=== PATIENT | female | born 1955 | race Caucasian/White ===

== ENCOUNTER 2016-10-19 09:35 | Observation (INO) | payer BC ==
[~2016-10-19] VITALS: Ht 162.6 cm; Wt 97.7 kg
[~2016-10-19 09:35] MED LIST: ACIPHEX20 MG PO; ACTOS15 MG PO; BAYER PLUS 500500 MG PO; CITRACAL SOFT1 EACH PO; CITRACAL-VIT D1 EACH PO; COUMADIN1 MG; DEXILANT60 MG PO; DONNATAL1 TABLET PO; IMODIUM A-D2 MG PO; LEVEMIR FL100 UNIT/1 SC; LOVENOX100 MG/1 M SC; MAXAIR IH; MOBIC7.5 MG PO; MUCINEX1200 MG PO; NAPROXEN500 MG PO; PERCOCET 5/31 TABLET PO; PRADAXA150 MG PO; ROBAXIN500 MG PO; SINGULAIR10 MG PO; SYMBICORT60 INHALA1 IH; SYMBICORT60 INHALAT IH; TRAMADOL HCL50 MG PO; ULTRAM50 MG PO; VOLTAREN 1% GE100 GM TP; XARELTO20 MG PO; ZANTAC150 MG PO; ZITHROMAX Z-PA250 MG PO; ZOFRAN4 MG PO
[2016-10-19 10:23] LABS: EOSINOPHIL (%) 3.8 % (0-5); EOSINOPHIL COUNT 0.2 K/uL (0-0.3); HEMATOCRIT 37.6 % (36.0-46.0); IMMATURE GRANULOCYTE (%) 0.2 % (0.0-0.7); INSTRUMENT ABS NEUTROPHIL CT 3.1 K/uL; LYMPHOCYTE COUNT 1.2 K/uL (1.0-2.8); MCH 24.2 PG (29.0-34.0); MCHC 30.6 G/DL (30.0-36.0); MEAN PLAT.VOLUME 9.3 uM^3 (9.5-12.4); MONOCYTE (%) 10.1 % (3-12); MONOCYTE COUNT 0.5 K/uL (0-0.8); NEUTROPHIL (%) 62.4 % (45-76); NEUTROPHIL COUNT 3.1 K/uL (1.8-6.4); PLATELET COUNT 272 K/uL (156-360); RBC DIS.WIDTH-CV 13.9 % (11.8-14.6); RBC DIS.WIDTH-SD 39.8 % (39-53); RED BLOOD COUNT 4.76 M/uL (3.80-5.20)
[2016-10-19 10:32] LABS: INTER. NORMALIZED RATIO 1.1; PROTHROMBIN TIME 11.1 (9.2-11.2); PTT 31.4 (25-32)
[2016-10-19 10:39] LABS: CHLORIDE 110 mEq/L (99-109); POTASSIUM 4.2 mEq/L (3.7-5.4); SODIUM 141 mEq/L (136-147)
[2016-10-19 10:40] LABS: GLUCOSE 155 mg/dL (70-99)
[2016-10-19 10:42] LABS: ANION GAP 13 MEQ/L (2-14)
[2016-10-19 10:44] LABS: GFR ESTIMATE (CALCULATED) > 59 mL/min/
[2016-10-19 10:45] LABS: UREA NITROGEN (BUN) 13 mg/dL (9-23)
[2016-10-19 10:50] LABS: TROP-I INTERPRETATION NEGATIVE; TROPONIN-I < 0.01 ng/mL (0.0-0.30)
[2016-10-19] MEDS ORDERED: JARDIANCE10 MG PO (12:55)
[2016-10-19] MEDS ORDERED: FLUCONAZOLE150 MG PO (12:55)
[2016-10-19] MEDS ORDERED: LEVEMIR FL100 UNIT/1 SC (13:36)
[2016-10-19] MEDS ORDERED: ROBAXIN500 MG PO (13:41)
[2016-10-19] MEDS ORDERED: NASONEX17 GM BOTH NARES (13:41)
[2016-10-19] MEDS ORDERED: PROVENTIL,2.5 MG/3 M IH (13:42)
[2016-10-19] MEDS ORDERED: PROAIR HFA8.5 GM IH (13:42)
[2016-10-19] MEDS ORDERED: VOLTAREN 1% GE100 GM TP (13:43)
[2016-10-19] MEDS ORDERED: DONNATAL1 TABLET PO ×2 (13:45→13:47)
[2016-10-19 14:09] LABS: HDL CHOLESTEROL 50 MG/DL (Desirable>=50); LDL CHOLESTEROL 85 mg/dL (Desirable<100); NON-HDL CHOLESTEROL 121 mg/dL (Desirable<160); TOTAL CHOLESTEROL 171 mg/dL (Desirable<200); TRIGLYCERIDES 178 MG/DL (Normal: <150)
[2016-10-19 14:35] VITALS: BP 122/69
[2016-10-19 17:05] LABS: TROP-I INTERPRETATION NEGATIVE; TROPONIN-I < 0.01 ng/mL (0.0-0.30)
[2016-10-19 20:00] VITALS: BP 133/76
[2016-10-19 20:38] LABS: POINT-OF-CARE METER ID UU14162513
[2016-10-19 23:03] LABS: TROP-I INTERPRETATION NEGATIVE; TROPONIN-I < 0.01 ng/mL (0.0-0.30)
[2016-10-19 23:39] VITALS: BP 131/60
[2016-10-20 04:05] VITALS: BP 119/63
[2016-10-20 07:00] VITALS: BP 122/55
[2016-10-20 07:36] LABS: POINT-OF-CARE METER ID UU13113831
[2016-10-20] MEDS ORDERED: LIDOCAINE700 MG TD (09:31)
[2016-10-20 10:32] LABS: ANION GAP 9 MEQ/L (2-14); CHLORIDE 107 MEQ/L (99-109); GFR ESTIMATE (CALCULATED) > 59 mL/min/; GLUCOSE 169 mg/dL (70-99); POTASSIUM 3.8 MEQ/L (3.7-5.4); SAMPLE HEMOLYSIS CHECK 0; SAMPLE ICTERIC CHECK 0; SAMPLE LIPEMIA CHECK 0; SODIUM 140 MEQ/L (136-147); UREA NITROGEN (BUN) 9 mg/dL (9-23)
[2016-10-20 11:43] VITALS: BP 128/69
[2016-10-20 12:14] LABS: POINT-OF-CARE METER ID UU13113831
[2016-10-20 13:09] LABS: ADD MIUA? YES; BILIRUBIN NEGATIVE; BLOOD SMALL; COLOR STRAW ((YELLOW)); GLUCOSE (STRIP) >=500; KETONES NEGATIVE; LEUKOCYTES NEGATIVE; NITRITE NEGATIVE; PROTEIN (STRIP) NEGATIVE; SPECIFIC GRAVITY 1.011 (1.000-1.030); UROBILINOGEN 0.2 MG/DL (0.2-1.0)
[2016-10-20 13:22] LABS: BACTERIA RARE /HPF; EPITHELIAL CELLS RARE /HPF; MUCUS TRACE /LPF; RED BLOOD CELLS 0-5 /HPF (0-5); WHITE BLOOD CELLS 0-5 /HPF (0-5)
[2016-10-20] MEDS ORDERED: TRAMADOL HCL50 MG PO (13:39)
== END 2016-10-20 13:46 | disposition home or self-care (01) ==
LOC: EME 09:35 → 5WEST 12:34 → EDOF 12:34 → 5WEST 14:21
PROVIDERS: Emergency Medicine; Internal Medicine
DX: R07.89 Other chest pain (principal); M25.512 Pain in left shoulder; D64.9 Anemia, unspecified; E11.9 Type 2 diabetes mellitus without complications; Z79.4 Long term (current) use of insulin; K21.9 Gastro-esophageal reflux disease without esophagitis; K58.9 Irritable bowel syndrome, unspecified; Z86.711 Personal history of pulmonary embolism; Z86.718 Personal history of other venous thrombosis and embolism
CPT/HCPCS: 71010; 71275; 80048; 80061; 81003; 82948; 84484; 85025; 85610; 85730; 93005; 94640; 94640 76; 99281; 99285; G0378; J1815; J3010; J7030

== ENCOUNTER 2017-03-24 14:58 | Emergency (ER) | payer BC ==
[~2017-03-24] VITALS: Ht 162.6 cm; Wt 93.7 kg
[~2017-03-24 14:58] MED LIST changes: +FLUCONAZOLE150 MG PO; +JARDIANCE10 MG PO; +LIDOCAINE700 MG TD; +NASONEX17 GM BOTH NARES; +PROAIR HFA8.5 GM IH; +PROVENTIL,2.5 MG/3 M IH
[2017-03-24 15:49] LABS: ADD MIUA? YES; BILIRUBIN NEGATIVE; BLOOD SMALL; COLOR STRAW ((YELLOW)); GLUCOSE (STRIP) NEGATIVE; KETONES NEGATIVE; LEUKOCYTES NEGATIVE; NITRITE NEGATIVE; PROTEIN (STRIP) NEGATIVE; SPECIFIC GRAVITY 1.009 (1.000-1.030); UROBILINOGEN 0.2 MG/DL (0.2-1.0)
[2017-03-24 15:52] LABS: BACTERIA NONE SEEN /HPF; EPITHELIAL CELLS RARE /HPF; MUCUS TRACE /LPF; RED BLOOD CELLS 0-5 /HPF (0-5); UCUL ADDED? NO; WHITE BLOOD CELLS 0-5 /HPF (0-5)
[2017-03-24 16:00] LABS: EOSINOPHIL (%) 2.4 % (0-5); EOSINOPHIL COUNT 0.1 K/uL (0-0.3); HEMATOCRIT 36.6 % (36.0-46.0); IMMATURE GRANULOCYTE (%) 0.2 % (0.0-0.7); INSTRUMENT ABS NEUTROPHIL CT 3.8 K/uL; LYMPHOCYTE COUNT 1.2 K/uL (1.0-2.8); MCH 23.7 PG (29.0-34.0); MCHC 31.4 G/DL (30.0-36.0); MCV 75.3 FL (83-99); MEAN PLAT.VOLUME 9.5 uM^3 (9.5-12.4); MONOCYTE (%) 10.7 % (3-12); MONOCYTE COUNT 0.6 K/uL (0-0.8); NEUTROPHIL (%) 66.2 % (45-76); NEUTROPHIL COUNT 3.8 K/uL (1.8-6.4); PLATELET COUNT 265 K/uL (156-360); RBC DIS.WIDTH-CV 17.2 % (11.8-14.6); RBC DIS.WIDTH-SD 45.9 % (39-53); RED BLOOD COUNT 4.86 M/uL (3.80-5.20); WHITE BLOOD COUNT 5.8 K/uL (4.1-10.2)
[2017-03-24 16:10] LABS: CHLORIDE 107 mEq/L (99-109); POTASSIUM 4.2 mEq/L (3.7-5.4); SODIUM 142 mEq/L (136-147)
[2017-03-24 16:12] LABS: GLUCOSE 165 mg/dL (70-99)
[2017-03-24 16:14] LABS: ANION GAP 12 MEQ/L (2-14); TOTAL BILIRUBIN 0.3 mg/dL (0.0-1.0)
[2017-03-24 16:16] LABS: ALKALINE PHOSPHATASE 144 IU/L (3-129); GFR ESTIMATE (CALCULATED) > 59 mL/min/
[2017-03-24 16:17] LABS: UREA NITROGEN (BUN) 13 mg/dL (9-23)
[2017-03-24] MEDS ORDERED: TRAMADOL HCL50 MG PO (17:00)
[2017-03-24 17:24] VITALS: BP 142/72
== END 2017-03-24 17:26 | disposition home or self-care (01) ==
LOC: EME 14:58 → RME 14:58
PROVIDERS: Physician Assistant Medical
DX: R10.32 Left lower quadrant pain (principal); K58.9 Irritable bowel syndrome, unspecified; E11.9 Type 2 diabetes mellitus without complications; Z79.4 Long term (current) use of insulin; K21.9 Gastro-esophageal reflux disease without esophagitis; J45.909 Unspecified asthma, uncomplicated; Z86.718 Personal history of other venous thrombosis and embolism; Z86.711 Personal history of pulmonary embolism; Z79.01 Long term (current) use of anticoagulants; Z90.49 Acquired absence of other specified parts of digestive tract; Z88.0 Allergy status to penicillin
CPT/HCPCS: 74176; 80053; 81003; 85025; 99281; 99284; J1885; J7030

== ENCOUNTER 2017-10-18 10:17 | Emergency (ER) | payer BC ==
[~2017-10-18] VITALS: Ht 162.6 cm; Wt 95.2 kg
[2017-10-18 10:37] LABS: HEMATOCRIT 37.8 % (36.0-46.0); HEMOGLOBIN 12.1 G/DL (11.9-15.5); MCH 25.2 PG (29.0-34.0); MCV 78.6 FL (83-99); PLATELET COUNT 259 K/uL (156-360); RBC DIS.WIDTH-CV 15.7 % (11.8-14.6); RBC DIS.WIDTH-SD 44.3 % (39-53); RED BLOOD COUNT 4.81 M/uL (3.80-5.20); WHITE BLOOD COUNT 5.7 K/uL (4.1-10.2)
[2017-10-18 10:49] LABS: CHLORIDE 108 mEq/L (99-109); POTASSIUM 4.1 mEq/L (3.7-5.4); SODIUM 144 mEq/L (136-147)
[2017-10-18 10:50] LABS: GLUCOSE 208 mg/dL (70-99)
[2017-10-18 10:54] LABS: CREATININE 0.7 mg/dL (0.6-1.3); GFR ESTIMATE (CALCULATED) > 59 mL/min/
[2017-10-18 10:55] LABS: UREA NITROGEN (BUN) 12 mg/dL (9-23)
[2017-10-18 10:59] LABS: TROP-I INTERPRETATION NEGATIVE; TROPONIN-I < 0.01 ng/mL (0.0-0.30)
[2017-10-18] MEDS ORDERED: COMPRESSION TH1 EACH MC (14:51)
[2017-10-18] MEDS ORDERED: MOTRIN800 MG PO (14:51)
[2017-10-18 15:14] VITALS: BP 118/70
== END 2017-10-18 15:34 | disposition home or self-care (01) ==
LOC: EME 10:17
DX: R00.2 Palpitations (principal); M79.652 Pain in left thigh; M25.512 Pain in left shoulder; R07.9 Chest pain, unspecified; R11.0 Nausea; R53.1 Weakness; R20.0 Anesthesia of skin; J98.11 Atelectasis; Z86.711 Personal history of pulmonary embolism; Z86.718 Personal history of other venous thrombosis and embolism; Z79.01 Long term (current) use of anticoagulants; J45.909 Unspecified asthma, uncomplicated; E11.9 Type 2 diabetes mellitus without complications; Z79.4 Long term (current) use of insulin; Z88.0 Allergy status to penicillin; Z88.2 Allergy status to sulfonamides; Z90.49 Acquired absence of other specified parts of digestive tract
CPT/HCPCS: 71046; 71275; 80048; 84484; 85027; 93005; 93971; 99281; 99285

== ENCOUNTER 2018-02-14 20:48 | Emergency (ER) | payer BC ==
[~2018-02-14] VITALS: Ht 160 cm; Wt 92.9 kg
[~2018-02-14 20:48] MED LIST changes: +COMPRESSION TH1 EACH MC; +MOTRIN800 MG PO
[2018-02-14 21:22] LABS: HEMATOCRIT 35.1 % (36.0-46.0); HEMOGLOBIN 11.4 G/DL (11.9-15.5); MCH 25.6 PG (29.0-34.0); MCHC 32.5 G/DL (30.0-36.0); MCV 78.7 FL (83-99); PLATELET COUNT 257 K/uL (156-360); RBC DIS.WIDTH-CV 15.7 % (11.8-14.6); RBC DIS.WIDTH-SD 44.3 % (39-53); RED BLOOD COUNT 4.46 M/uL (3.80-5.20); WHITE BLOOD COUNT 6.2 K/uL (4.1-10.2)
[2018-02-14 21:32] LABS: ALBUMIN 4.3 g/dL (3.2-4.8)
[2018-02-14 21:33] LABS: CHLORIDE 111 mEq/L (99-109); POTASSIUM 4.2 mEq/L (3.7-5.4); SODIUM 142 mEq/L (136-147)
[2018-02-14 21:35] LABS: GLUCOSE 89 mg/dL (70-99); TOTAL PROTEIN 7.9 g/dL (6.4-8.3)
[2018-02-14 21:37] LABS: TOTAL BILIRUBIN 0.4 mg/dL (0.0-1.0)
[2018-02-14 21:38] LABS: ALKALINE PHOSPHATASE 122 IU/L (3-129)
[2018-02-14 21:39] LABS: CREATININE 0.7 mg/dL (0.6-1.3); GFR ESTIMATE (CALCULATED) > 59 mL/min/
[2018-02-14 21:40] LABS: AST (GOT) 14 IU/L (2-34); UREA NITROGEN (BUN) 10 mg/dL (9-23)
[2018-02-14 21:42] LABS: ALT (GPT) 19 IU/L (3-49)
[2018-02-14 21:48] LABS: APPEARANCE CLEAR ((CLEAR)); BILIRUBIN NEGATIVE; BLOOD NEGATIVE; COLOR YELLOW ((YELLOW)); GLUCOSE (STRIP) NEGATIVE; KETONES NEGATIVE; LEUKOCYTES NEGATIVE; NITRITE NEGATIVE; PROTEIN (STRIP) NEGATIVE; SPECIFIC GRAVITY 1.014 (1.000-1.030); UCUL ADDED? NO; UROBILINOGEN 0.2 MG/DL (0.2-1.0)
[2018-02-15] MEDS ORDERED: NORCO 5/3251 TABLET PO (00:44)
[2018-02-15 01:20] VITALS: BP 115/71
== END 2018-02-15 01:20 | disposition home or self-care (01) ==
LOC: EME 20:48
DX: Q43.8 Other specified congenital malformations of intestine (principal); K21.9 Gastro-esophageal reflux disease without esophagitis; K58.9 Irritable bowel syndrome, unspecified; E11.9 Type 2 diabetes mellitus without complications; J45.909 Unspecified asthma, uncomplicated; Z90.49 Acquired absence of other specified parts of digestive tract; Z86.711 Personal history of pulmonary embolism; Z86.718 Personal history of other venous thrombosis and embolism; Z79.4 Long term (current) use of insulin; Z88.0 Allergy status to penicillin; Z88.2 Allergy status to sulfonamides; Z88.1 Allergy status to other antibiotic agents; Z88.8 Allergy status to other drugs, medicaments and biological substances
CPT/HCPCS: 74177; 80053; 81003; 85027; 99281; 99285; J3010; J7030